=== PATIENT | male | born 1965 | race Caucasian/White ===

== ENCOUNTER 2019-09-17 01:06 | Outpatient (CLI) | payer OTHER, SELFPAY ==
[2019-09-17 19:01] LABS: SARS-CoV-2 RNA PCR Negative
== END 2019-09-17 01:07 | disposition home or self-care (01) ==
LOC: ANHCOVIDDT 01:06
PROVIDERS: PCP Family Medicine; Visit Provider Internal Medicine Gastroenterology
DX: Z01.818 Encounter for other preprocedural examination (principal); Z11.59 Encounter for screening for other viral diseases
CPT/HCPCS: 87635; C9803; U0003

== ENCOUNTER 2019-09-19 02:58 | Day surgery (SDC) | payer OTHER, SELFPAY ==
[2019-09-12 12:01] VITALS: BMI 51.2
[2019-09-19 11:38] VITALS: BP 121/59; PULSE 90; RESP 18; TEMP 36.4; O2SAT 97; BMI 49.2
[2019-09-19] MEDS: LACTATED RINGERS 1,000 ML 150 ML IV CONT (11:42)
--- NOTE | 2019-09-19 11:43 | WPDANESEPPF ---
Anes - Initial Pre Proc Eval Procedure: Operation Date: 09/19/19 12:45 Proposed Procedures p Esophagogastroduodenoscopy - Alonzo Miles MD Date/Time: 09/19/19 11:43 Surgeon: Alonzo Miles MD Pre Op Diagnosis: Cirrhosis of Liver, Esophageal Varices without ble Patient Data Age: 53 Gender: M Height: 5 ft 2 in Weight: 122.2 kg Last Vital Signs Temp 36.4 C L 09/19/19 11:38 Pulse 90 09/19/19 11:38 Resp 18 09/19/19 11:38 BP 121/59 L 09/19/19 11:38 Pulse Ox 97 09/19/19 11:38 Allergies Allergy/AdvReac Type Severity Reaction Status Date / Time No Known Allergies Allergy Unverified 09/19/19 11:32 Home Medications Medication Instructions Recorded Confirmed Type atorvastatin 20 mg tablet 20 mg PO DAILY 08/13/19 09/12/19 History buspirone 10 mg tablet 10 mg PO BID 08/13/19 09/12/19 History furosemide 20 mg tablet 20 mg PO QAM 08/13/19 09/12/19 History glipizide 10 mg tablet 10 mg PO BID 08/13/19 09/12/19 History hydrocodone 5 mg-acetaminophen 325 1 tablet PO Q8H PRN 08/13/19 09/12/19 History mg tablet insulin glargine 100 unit/mL (3 10 unit SUB-Q DAILY 08/13/19 09/12/19 History mL) subcutaneous pen linagliptin 5 mg tablet 5 mg PO QAM 08/13/19 09/12/19 History metformin 1,000 mg tablet 1,000 mg PO BID 08/13/19 09/12/19 History omeprazole 20 mg capsule,delayed 20 mg PO DAILY #30 cap 08/13/19 09/12/19 Rx release pregabalin 150 mg capsule 150 mg PO BID 08/13/19 09/12/19 History spironolactone 50 mg tablet 50 mg PO DAILY 08/13/19 09/12/19 History metoclopramide HCl 5 mg tablet 5 mg PO DAILY #30 tablet 08/20/19 09/12/19 Rx ergocalciferol (vitamin D2) 1,250 mcg PO WEEKLY 09/12/19 09/12/19 History insulin lispro [Humalog KwikPen 10 unit SUBCUT TID 09/12/19 09/12/19 History Insulin] lactulose 15 ml PO TID 09/12/19 09/12/19 History nadolol 20 mg PO DAILY 09/12/19 09/12/19 History venlafaxine 75 mg PO DAILY 09/12/19 09/19/19 History venlafaxine 150 mg PO DAILY 09/12/19 09/19/19 History megestrol 20 mg PO ONCE 09/19/19 09/19/19 History melatonin 5 mg PO HS 09/19/19 09/19/19 History ondansetron 4 mg PO Q6H PRN 09/19/19 09/19/19 History Patient hx anesthesia problems: none Family hx anesthesia problems: none [facility] Past Medical History Medical History Cirrhosis Diabetes mellitus, insulin dependent (IDDM), uncontrolled Esophageal varices determined by endoscopy Gastroparesis GERD (gastroesophageal reflux disease) Hepatic encephalopathy Sarcoid Thrombocytopenia Surgical History Surgical History History of bunionectomy Family History Family History Mother Lung cancer Father Lung cancer Social History Social History Smoking packs per day: 2 Smoking cigarettes per day: 40.0 Smoking status: Current every day smoker Tobacco type: cigarettes Alcohol intake: never Anes - Eval Final PreProcedure Day of Procedure 09/19/19 11:43 Patient weight: morbidly obese Heart: regular rate and rhythm Lungs: decreased breath sounds Airway: Mallampati scale class II Neurological: alert and oriented Last oral intake: >/= 8 hours ASA classification: IV Emergent: no Anesthetic plan: proceed Anesthesia type and monitoring: general GIVS and standard monitoring Informed Consent: The patient's anesthetic plan and its attendant risks and benefits were discussed with the patient/family/POA. Questions were solicited and answers provided to the satisfaction of the patient/family/POA.
[2019-09-19 11:46] LABS: Glucose Point of Care 165 (65-105)
--- NOTE | 2019-09-19 12:16 | SUR.OPER ---
pt and visitor notified of approx 20 min delayed start time for procedure. verbalized understanding.
--- NOTE | 2019-09-19 12:49 | PM.HPGS ---
History of Present Illness History of Present Illness Consent: Risks, benefits, and alternatives have been discussed and questions answered. Patient agrees to proceed with procedure. Chief complaint: Cirrhosis of Liver, Esophageal Varices without ble Narrative: Nemesio Maier is a 53 year old male with cirrhosis, esophageal varices last time requiring banding 2018, here to reassess size again. Review of Systems Constitutional: Constitutional: Denies headache(s) and Denies weakness Eyes: Eyes: Denies blurry vision ENT: Reports Normal hearing present, Denies headache(s) and Denies neck pain Cardiovascular: Cardiovascular: Denies chest pain and Denies dyspnea Respiratory: Respiratory: Denies dyspnea Gastrointestinal: Gastrointestinal: Reports no additional gastrointestinal complaints Genitourinary: Genitourinary: Denies dysuria Musculoskeletal: Musculoskeletal: Denies neck pain Integumentary/Breasts: Skin/Breast: Denies dry skin Neurologic: Reports Normal hearing present, Denies headache(s) and Denies weakness Psychiatric: Psychiatric: Denies anxiety Endocrine: Endocrine: Denies change in body appearance Hematologic/Lymphatic: Hematologic/Lymphatic: Denies easy bleeding Allergic/Immunologic: Allergic/Immunologic: Denies urticaria PMFSH Past Medical History Medical History Cirrhosis Diabetes mellitus, insulin dependent (IDDM), uncontrolled Esophageal varices determined by endoscopy Gastroparesis GERD (gastroesophageal reflux disease) Hepatic encephalopathy Sarcoid Thrombocytopenia Surgical History Surgical History History of bunionectomy Family History Family History Mother Lung cancer Father Lung cancer Social History Social History Smoking packs per day: 2 Smoking cigarettes per day: 40.0 Smoking status: Current every day smoker Tobacco type: cigarettes Alcohol intake: never Meds Home Medications and Allergies Home Medications Medication Instructions Recorded Confirmed Type atorvastatin 20 mg tablet 20 mg PO DAILY 08/13/19 09/12/19 History buspirone 10 mg tablet 10 mg PO BID 08/13/19 09/12/19 History furosemide 20 mg tablet 20 mg PO QAM 08/13/19 09/12/19 History glipizide 10 mg tablet 10 mg PO BID 08/13/19 09/12/19 History hydrocodone 5 mg-acetaminophen 325 1 tablet PO Q8H PRN 08/13/19 09/12/19 History mg tablet insulin glargine 100 unit/mL (3 10 unit SUB-Q DAILY 08/13/19 09/12/19 History mL) subcutaneous pen linagliptin 5 mg tablet 5 mg PO QAM 08/13/19 09/12/19 History metformin 1,000 mg tablet 1,000 mg PO BID 08/13/19 09/12/19 History omeprazole 20 mg capsule,delayed 20 mg PO DAILY #30 cap 08/13/19 09/12/19 Rx release pregabalin 150 mg capsule 150 mg PO BID 08/13/19 09/12/19 History spironolactone 50 mg tablet 50 mg PO DAILY 08/13/19 09/12/19 History metoclopramide HCl 5 mg tablet 5 mg PO DAILY #30 tablet 08/20/19 09/12/19 Rx ergocalciferol (vitamin D2) 1,250 mcg PO WEEKLY 09/12/19 09/12/19 History insulin lispro [Humalog KwikPen 10 unit SUBCUT TID 09/12/19 09/12/19 History Insulin] lactulose 15 ml PO TID 09/12/19 09/12/19 History nadolol 20 mg PO DAILY 09/12/19 09/12/19 History venlafaxine 75 mg PO DAILY 09/12/19 09/19/19 History venlafaxine 150 mg PO DAILY 09/12/19 09/19/19 History megestrol 20 mg PO ONCE 09/19/19 09/19/19 History melatonin 5 mg PO HS 09/19/19 09/19/19 History ondansetron 4 mg PO Q6H PRN 09/19/19 09/19/19 History Allergies Allergy/AdvReac Type Severity Reaction Status Date / Time No Known Allergies Allergy Unverified 09/19/19 11:32 Vital Signs Vital Signs - 24 hr 09/19/19 11:38 Temperature 97.5 F L Pulse Rate 90 Respiratory Rate 18 Blood Pressure 121/59 L Pulse Oximetry 97
[2019-09-19 13:05] VITALS: BP 95/56; PULSE 84; RESP 20; O2SAT 97
[2019-09-19 13:15] VITALS: BP 114/60; PULSE 86; RESP 20; O2SAT 97
[2019-09-19 13:25] VITALS: BP 108/64; PULSE 88; RESP 20; O2SAT 97
== END 2019-09-19 13:38 | disposition home or self-care (01) ==
PROVIDERS: PCP Family Medicine; Visit Provider Internal Medicine Gastroenterology
PROC: 0DJ08ZZ Inspection of Upper Intestinal Tract, Via Natural or Artificial Opening Endoscopic (ICD-10-PCS; CPT 43235; principal; 2019-09-19 12:45)
DX: K74.60 Unspecified cirrhosis of liver (principal); I85.10 Secondary esophageal varices without bleeding; K29.70 Gastritis, unspecified, without bleeding; K21.9 Gastro-esophageal reflux disease without esophagitis; I10 Essential (primary) hypertension; E11.9 Type 2 diabetes mellitus without complications; Z79.4 Long term (current) use of insulin; E66.01 Morbid (severe) obesity due to excess calories; Z68.42 Body mass index [BMI] 45.0-49.9, adult; F41.9 Anxiety disorder, unspecified; F32.9 Major depressive disorder, single episode, unspecified; G47.33 Obstructive sleep apnea (adult) (pediatric); F17.210 Nicotine dependence, cigarettes, uncomplicated; Z79.899 Other long term (current) drug therapy
CPT/HCPCS: 43235; J2001; J2704; J7120

== ENCOUNTER → 2020-05-04 00:27 | Outpatient (CLI) | payer OTHER, SELFPAY ==
[2020-05-04 19:08] LABS: SARS-CoV-2 RNA PCR Negative
== END ==
PROVIDERS: PCP Family Medicine; Visit Provider Internal Medicine Gastroenterology
DX: Z01.812 Encounter for preprocedural laboratory examination (principal); Z20.822 Contact with and (suspected) exposure to COVID-19
CPT/HCPCS: C9803; U0003; U0005

== ENCOUNTER 2020-05-07 00:55 | Day surgery (SDC) | payer OTHER, SELFPAY ==
[2020-03-26 15:22] VITALS: BMI 36.8
[2020-04-12 10:42] VITALS: BMI 30.3
[2020-05-07 09:40] VITALS: BP 115/55; PULSE 88; RESP 18; TEMP 36.7; O2SAT 99
[2020-05-07] MEDS: LACTATED RINGERS 1,000 ML 150 ML IV CONT (10:00)
--- NOTE | 2020-05-07 10:00 | WPDANESEPPF ---
Anes - Initial Pre Proc Eval Procedure: Operation Date: 05/07/20 11:00 Proposed Procedures p Esophagogastroduodenoscopy & Colonoscopy - Alonzo Miles MD Date/Time: 05/07/20 10:00 Surgeon: Alonzo Miles MD Pre Op Diagnosis: Anemia, Esophageal Varices Patient Data Age: 54 Gender: M Height: 1.91 m Weight: 116.3 kg Last Vital Signs Temp 36.7 C 05/07/20 09:40 Pulse 88 05/07/20 09:40 Resp 18 05/07/20 09:40 BP 115/55 L 05/07/20 09:40 Pulse Ox 99 05/07/20 09:40 Allergies Allergy/AdvReac Type Severity Reaction Status Date / Time Latex, Natural Rubber AdvReac Rash Verified 05/07/20 09:44 Home Medications Medication Instructions Recorded Confirmed Type atorvastatin 20 mg tablet 20 mg PO DAILY 08/13/19 05/07/20 History buspirone 10 mg tablet 10 mg PO BID 08/13/19 05/07/20 History furosemide 20 mg tablet 60 mg PO QAM 08/13/19 05/07/20 History glipizide 10 mg tablet 10 mg PO BID 08/13/19 05/07/20 History hydrocodone 5 mg-acetaminophen 325 1 tablet PO BID 08/13/19 05/07/20 History mg tablet insulin glargine 100 unit/mL (3 12 unit SUB-Q HS 08/13/19 05/07/20 History mL) subcutaneous pen metformin 1,000 mg tablet 1,000 mg PO BID 08/13/19 05/07/20 History spironolactone 50 mg tablet 150 mg PO DAILY 08/13/19 05/07/20 History ergocalciferol (vitamin D2) 1,250 mcg PO WEEKLY 09/12/19 05/07/20 History lactulose 30 ml PO TID 09/12/19 05/07/20 History venlafaxine 75 mg PO DAILY 09/12/19 05/07/20 History venlafaxine 150 mg PO DAILY 09/12/19 05/07/20 History megestrol 20 mg PO TID PRN 09/19/19 05/07/20 History melatonin 5 mg PO HS 09/19/19 05/07/20 History ondansetron 4 mg PO Q6H PRN 09/19/19 05/07/20 History nadolol 20 mg tablet 20 mg PO DAILY #30 tablet 10/15/19 05/07/20 Rx docusate sodium 100 mg capsule 100 mg PO BID 03/15/20 05/07/20 History ferrous fumarate 325 mg (106 mg 325 mg PO BID 03/15/20 05/07/20 History iron) tablet pantoprazole 40 mg tablet,delayed 40 mg PO QAM #30 tablet 03/15/20 05/07/20 Rx release albuterol sulfate 1 - 2 puff INHALATION Q4H PRN 03/26/20 05/07/20 History liraglutide [Victoza 3-Raul] 1.8 mg SUBCUT HS 03/26/20 05/07/20 History metoclopramide HCl 10 mg PO TIDHS 03/26/20 05/07/20 History peg 3350-electrolytes 236 240 ml PO Q10M #4000 ml 03/26/20 05/07/20 Rx gram-22.74 gram-6.74 gram-5.86 gram solution pregabalin 200 mg PO BID 03/26/20 05/07/20 History rifaximin [Xifaxan] 550 mg PO BID 03/26/20 05/07/20 History potassium 10 mg PO DAILY 04/12/20 05/07/20 History Patient hx anesthesia problems: none Family hx anesthesia problems: none PMFSH Past Medical History Medical History (Updated 03/15/20 @ 14:51 by Alonzo Miles MD) Acute on chronic anemia Cirrhosis Diabetes mellitus type 2 in obese Diabetes mellitus, insulin dependent (IDDM), uncontrolled Esophageal varices determined by endoscopy Gastroparesis GERD (gastroesophageal reflux disease) Hepatic encephalopathy Liver nodule Sarcoid Thrombocytopenia Tobacco abuse Surgical History Surgical History History of bunionectomy Family History Family History Mother Lung cancer Father Lung cancer Social History Social History Smoking packs per day: 0.5 Smoking cigarettes per day: 10.0 Years smoked: 30 Smoking pack-years: 15.00 Smoking status: Current every day smoker Tobacco type: cigarettes Alcohol intake: never Substance use: never Substance use type: does not use Living arrangements: with family Anes - Eval Final PreProcedure Day of Procedure 05/07/20 10:00 Patient weight: obese Heart: regular rate and rhythm Lungs: clear to auscultation and normal air movement Airway: Mallampati scale class II Neurological: alert and oriented Last oral int
[2020-05-07 10:04] LABS: Glucose Point of Care 117 (65-105)
--- NOTE | 2020-05-07 10:52 | PM.HPGS ---
History of Present Illness History of Present Illness Consent: Risks, benefits, and alternatives have been discussed and questions answered. Patient agrees to proceed with procedure. Chief complaint: Anemia, Esophageal Varices Narrative: Nemesio Maier is a 54 year old male with cirrhosis, previous esophageal banding with eradication of varices, anemia that required blood transfusion weeks ago, here for egd and colonoscopy, denies GIB. Also recent hospitalization for PSE on lactulose and xifaxan. He is also seeing steam tender at [facility], will get new MRI liver for hcc surveillance given recent elevated AFP. Review of Systems Constitutional: Constitutional: Denies headache(s) and Denies weakness Eyes: Eyes: Denies blurry vision ENT: Reports Normal hearing present, Denies headache(s) and Denies neck pain Cardiovascular: Cardiovascular: Denies chest pain and Denies dyspnea Respiratory: Respiratory: Denies dyspnea Gastrointestinal: Gastrointestinal: Reports no additional gastrointestinal complaints Genitourinary: Genitourinary: Denies dysuria Musculoskeletal: Musculoskeletal: Denies neck pain Integumentary/Breasts: Skin/Breast: Denies dry skin Neurologic: Reports Normal hearing present, Denies headache(s) and Denies weakness Psychiatric: Psychiatric: Denies anxiety Endocrine: Endocrine: Denies change in body appearance Hematologic/Lymphatic: Hematologic/Lymphatic: Denies easy bleeding Allergic/Immunologic: Allergic/Immunologic: Denies urticaria PMFSH Past Medical History Medical History (Updated 03/15/20 @ 14:51 by Alonzo Miles MD) Acute on chronic anemia Cirrhosis Diabetes mellitus type 2 in obese Diabetes mellitus, insulin dependent (IDDM), uncontrolled Esophageal varices determined by endoscopy Gastroparesis GERD (gastroesophageal reflux disease) Hepatic encephalopathy Liver nodule Sarcoid Thrombocytopenia Tobacco abuse Surgical History Surgical History History of bunionectomy Family History Family History Mother Lung cancer Father Lung cancer Social History Social History Smoking packs per day: 0.5 Smoking cigarettes per day: 10.0 Years smoked: 30 Smoking pack-years: 15.00 Smoking status: Current every day smoker Tobacco type: cigarettes Alcohol intake: never Substance use: never Substance use type: does not use Living arrangements: with family Meds Home Medications and Allergies Home Medications Medication Instructions Recorded Confirmed Type atorvastatin 20 mg tablet 20 mg PO DAILY 08/13/19 05/07/20 History buspirone 10 mg tablet 10 mg PO BID 08/13/19 05/07/20 History furosemide 20 mg tablet 60 mg PO QAM 08/13/19 05/07/20 History glipizide 10 mg tablet 10 mg PO BID 08/13/19 05/07/20 History hydrocodone 5 mg-acetaminophen 325 1 tablet PO BID 08/13/19 05/07/20 History mg tablet insulin glargine 100 unit/mL (3 12 unit SUB-Q HS 08/13/19 05/07/20 History mL) subcutaneous pen metformin 1,000 mg tablet 1,000 mg PO BID 08/13/19 05/07/20 History spironolactone 50 mg tablet 150 mg PO DAILY 08/13/19 05/07/20 History ergocalciferol (vitamin D2) 1,250 mcg PO WEEKLY 09/12/19 05/07/20 History lactulose 30 ml PO TID 09/12/19 05/07/20 History venlafaxine 75 mg PO DAILY 09/12/19 05/07/20 History venlafaxine 150 mg PO DAILY 09/12/19 05/07/20 History megestrol 20 mg PO TID PRN 09/19/19 05/07/20 History melatonin 5 mg PO HS 09/19/19 05/07/20 History ondansetron 4 mg PO Q6H PRN 09/19/19 05/07/20 History nadolol 20 mg tablet 20 mg PO DAILY #30 tablet 10/15/19 05/07/20 Rx docusate sodium 100 mg capsule 100 mg PO BID 03/15/20 05/07/20 History ferrous fumarate 325 mg (106 mg 325 mg PO BID 03/15/20 05/07/20 History iron) tablet pantoprazole 40 mg tablet,delayed 40 mg PO QAM #30 ta
[2020-05-07 11:31] VITALS: BP 97/58; PULSE 80; RESP 18; O2SAT 98
[2020-05-07 11:41] VITALS: BP 124/69; PULSE 80; RESP 19; O2SAT 99
[2020-05-07 11:47] LABS: Glucose Point of Care 124 (65-105)
[2020-05-07 11:51] VITALS: BP 129/72; PULSE 84; RESP 18; O2SAT 99
== END 2020-05-07 12:02 | disposition home or self-care (01) ==
PROVIDERS: PCP Family Medicine; Visit Provider Internal Medicine Gastroenterology
PROC: 0DJ08ZZ Inspection of Upper Intestinal Tract, Via Natural or Artificial Opening Endoscopic (ICD-10-PCS; CPT 43235; principal; 2020-05-07 11:00)
DX: D50.0 Iron deficiency anemia secondary to blood loss (chronic) (principal); D12.4 Benign neoplasm of descending colon; D12.3 Benign neoplasm of transverse colon; I85.00 Esophageal varices without bleeding; E11.9 Type 2 diabetes mellitus without complications; K29.70 Gastritis, unspecified, without bleeding; K21.9 Gastro-esophageal reflux disease without esophagitis; K74.60 Unspecified cirrhosis of liver; K31.84 Gastroparesis; G93.40 Encephalopathy, unspecified; K72.91 Hepatic failure, unspecified with coma; D86.9 Sarcoidosis, unspecified; D69.6 Thrombocytopenia, unspecified; F17.210 Nicotine dependence, cigarettes, uncomplicated; Z79.84 Long term (current) use of oral hypoglycemic drugs; Z79.4 Long term (current) use of insulin; Z79.51 Long term (current) use of inhaled steroids; K72.90 Hepatic failure, unspecified without coma; K64.8 Other hemorrhoids
CPT/HCPCS: 43235; 45385; 82948; 88305; J2704; J7120